=== PATIENT | male | born 1970 | race Caucasian/White ===

== ENCOUNTER 2017-03-14 10:50 | Emergency (ER) | payer MEDICAID ==
[2016-01-30 18:11] VITALS: BMI 25.1
[~2017-03-14 10:50] MED LIST: AMITRIPTYLINE150 MG PO; PROZAC20 MG PO; SEROQUEL100 MG PO; SEROQUEL200 MG PO
== END 2017-03-14 13:09 | disposition home or self-care (01) ==
LOC: D.ER 10:50
DX: S69.92XA Unspecified injury of left wrist, hand and finger(s), initial encounter (principal); W19.XXXA Unspecified fall, initial encounter; Y93.89 Activity, other specified; Y92.019 Unspecified place in single-family (private) house as the place of occurrence of the external cause; S62.306A Unspecified fracture of fifth metacarpal bone, right hand, initial encounter for closed fracture; F17.200 Nicotine dependence, unspecified, uncomplicated

== ENCOUNTER 2017-06-22 14:39 | Emergency (ER) | payer SELFPAY ==
[2016-01-30 18:11] VITALS: BMI 25.1
[2017-06-22 16:35] LABS: ALKALINE PHOSPHATASE 76 U/L (46-116); ALT (SGPT) 39 U/L (10-68); BILIRUBIN - TOTAL 0.27 mg/dL (0.2-1.3); CALC OSMOLALITY 278 mosm/kg (275-300); CALCIUM 9.1 mg/dL (8.5-10.1); CARBON DIOXIDE 31.8 mmol/L (21.0-32.0); CHLORIDE - SERUM 101 mmol/L (98-107); CREATININE - SERUM 0.8 mg/dL (0.6-1.3); GLUCOSE 104 mg/dL (74-106); POTASSIUM - SERUM 4.9 mmol/L (3.5-5.1); PROTEIN - SERUM 7.6 g/dL (6.4-8.2); SODIUM 139 mmol/L (136-145); UREA NITROGEN 16 mg/dL (7-18); eGFR NON AFRICAN AMERICAN > 90 mL/min (90-120)
== END 2017-06-22 17:05 | disposition home or self-care (01) ==
LOC: D.ER 14:39
PROVIDERS: Nurse Practitioner Acute Care
DX: M25.532 Pain in left wrist (principal); F17.200 Nicotine dependence, unspecified, uncomplicated

== ENCOUNTER 2017-12-15 11:08 | Emergency (ER) | payer BC ==
[2016-01-30 18:11] VITALS: BMI 25.1
== END 2017-12-15 12:17 | disposition home or self-care (01) ==
LOC: D.ER 11:08
DX: N45.1 Epididymitis (principal); F17.200 Nicotine dependence, unspecified, uncomplicated

== ENCOUNTER 2018-06-15 04:54 | Inpatient (IN) | payer MEDICAID ==
[~2018-06-15] VITALS: Ht 180.3 cm; Wt 86.4 kg
--- NOTE | ~2018-06-15 | EC ---
PATIENT:HALIMA SHARP DATE OF SERVICE: 06/15/18 SEX: M MEDICAL RECORD: [id number] DATE OF : [birth year] LOCATION:D.M2 D.213 AGE OF PATIENT: 47 ADMISSION DATE: 06/15/18 REFERRING PHYSICIAN: INTERPRETING PHYSICIAN: FABY ROTH MD ECHOCARDIOGRAM REPORT ECHO CHARGES 4 ECHO COMPLETE Date: 06/15 CLINICAL DIAGNOSIS: IV DRUG USE, ASSESS FOR VEG ECHOCARDIOGRAPHIC MEASUREMENTS (adult normal given) AC root (d.<3.7cm) 4.0 cm LV Septum d (<1.2 cm> 1.7 cm Valve Excursion 2.4 cm LV Septum (systole) 2.0 cm Left Atria (s.<4.0cm> 3.2 cm LVPW d(<1.2cm) 1.6 cm RV (d.<2.3cm) 4.5 cm LVPW (sytole) 1.8 cm LV diastole(<5.6CM) 6.3 cm MV E-F(>70mm/sec) cm LV systole 4.6 cm LVOT Diameter 2.4 cm MV exc.(>10mm) 2.4 cm Est.ejection fraction (50-75%) % DOPPLER: LVIT cm/sec A 62.0 cm/sec E 80.0 cm/sec LA cm/sec RVSP 16 mmHg LVOT 103 cm/sec AOP1/2T m/s Asc. Ao 131 cm/sec RVOT 79 cm/sec RA 98 cm/sec PA cm/sec AV Gradient Peak 6.86 mmHg AV Mean 3.40 mmHg AV Area 2.6 cm MV Gradient Peak 3.29 mmHg MV Mean 3.40 mmHg MV Area cm COMMENTS: Transport Analyst: Alonso ARMIJO Senior Linux Systems Administrator: 1 Dr. Roth TAPE# PACS Pericardial Effusion N DATE OF SERVICE: 06/15/2018 DATE OF SERVICE: 06/15/2018 FINDINGS: 1. Left ventricular chamber size is within normal limits. Left ventricular systolic function is normal. Overall ejection fraction is estimated at 55% to 60%. 2. Left atrium, right atrium, and right ventricle chamber sizes are within normal limits. ECHOCARDIOGRAM REPORT [id number] HALIMA SHARP 3. Valvular structures have normal structure and motion. No evidence of vegetative endocarditis. 4. Doppler interrogation reveals mild mitral regurgitation, trace tricuspid regurgitation, no other valvular insufficiency or stenosis and pulmonary systolic pressure is normal estimated at 16 mmHg. 5. No evidence of pericardial effusion or left ventricular thrombus. TRANSINT:[id number] Voice Confirmation ID: [id number] DOCUMENT ID: [id number] FABY ROTH MD at 1325 CC: [id number] DICTATION DATE: 06/15/18 1636 PATIENT CENTERED CARE SPECIALIST: 06/15/18 1824 DIS IN 06/19/18 [facility] [address] [place] [id number]
[2018-06-15 05:27] LABS: BASOPHILS 0.8 % (0-2); HEMATOCRIT 37.6 % (42.0-54.0); HEMOGLOBIN 12.5 g/dL (13.5-17.5); IMMATURE GRANULOCYTES 2.2 % (0-5); LYMPHOCYTES 20.6 % (15-50); MCH 29.7 pg (26.0-34.0); MCHC 33.2 g/dL (31.0-37.0); MCV 89.3 fL (80.0-100.0); MEAN PLATELET VOLUME 9.4 fL (7.4-10.4); MONOCYTES 10.4 % (2-11); PLATELET COUNT 676 10x3/uL (130-400); RBC 4.21 10x6/uL (4.20-6.10); RDW 13.2 % (11.5-14.5)
[2018-06-15 05:44] LABS: ALBUMIN 3.1 g/dL (3.4-5.0); ALKALINE PHOSPHATASE 77 U/L (46-116); ALT (SGPT) 40 U/L (10-68); BILIRUBIN - TOTAL 0.33 mg/dL (0.2-1.3); CALC OSMOLALITY 284 mosm/kg (275-300); CALCIUM 8.7 mg/dL (8.5-10.1); CARBON DIOXIDE 29.3 mmol/L (21.0-32.0); CHLORIDE - SERUM 102 mmol/L (98-107); CREATININE - SERUM 1.4 mg/dL (0.6-1.3); GLUCOSE 124 mg/dL (74-106); POTASSIUM - SERUM 4.2 mmol/L (3.5-5.1); PROTEIN - SERUM 8.2 g/dL (6.4-8.2); SODIUM 139 mmol/L (136-145); UREA NITROGEN 28 mg/dL (7-18); eGFR NON AFRICAN AMERICAN 58 mL/min (90-120)
[2018-06-15 05:50] LABS: INR 1.12 (0.85-1.17)
[2018-06-15 05:51] LABS: APTT 34.4 SECONDS (22.8-39.4)
[2018-06-15 05:52] LABS: D-DIMER-QUANTITATIVE 1.41 ug/mLFEU (0.20-0.54)
[2018-06-15 05:56] LABS: CKMB 1.5 U/L (0.0-3.6); CREATINE KINASE 519 UL (21-232); PRO BNP 81 pg/mL (0-125); TROPONIN-I < 0.017 ng/mL (0.000-0.060)
[2018-06-15 06:18] VITALS: BP 117/87
[2018-06-15 07:00] LABS: UDS - AMPHET POSITIVE QUAL (NEGATIVE); UDS - BARB NEGATIVE QUAL (NEGATIVE); UDS - BENZO NEGATIVE QUAL (NEGATIVE); UDS - COCAINE NEGATIVE QUAL (NEGATIVE); UDS - OPIATE POSITIVE QUAL (NEGATIVE); UDS - PCP NEGATIVE QUAL (NEGATIVE); UDS - THC NEGATIVE QUAL (NEGATIVE)
[2018-06-15 07:45] VITALS: BP 116/78
[2018-06-15 07:54] LABS: APPEARANCE TURBID (CLEAR); COLOR YELLOW (YELLOW); SPECIFIC GRAVITY 1.025 (1.005-1.020)
[2018-06-15 07:55] LABS: BILIRUBIN NEGATIVE (NEGATIVE); GLUCOSE NEGATIVE (NEGATIVE); KETONE NEGATIVE (NEGATIVE); NITRITE NEGATIVE (NEGATIVE); PROTEIN NEGATIVE (NEGATIVE); UROBILINOGEN NORMAL (NORMAL)
[2018-06-15 13:49] LABS: % SATURATION 31 % (15-55); IRON 70 ug/dl (35-150); TOTAL IRON BIND CAPACITY 224 ug/dl (260-445); UNSAT IRON BIND CAPACITY 154 ug/dl (150-375)
[2018-06-15 16:54] VITALS: BP 100/71
[2018-06-15 20:30] VITALS: BP 118/78
[2018-06-16] VITALS (7 sets, daily range): BP systolic 91–158; BP diastolic 54–94; BMI 26.5
[2018-06-16 05:28] LABS: BASOPHILS 0.5 % (0-2); EOSINOPHILS 6.8 % (0-7); HEMATOCRIT 35.1 % (42.0-54.0); HEMOGLOBIN 11.3 g/dL (13.5-17.5); IMMATURE GRANULOCYTES 0.9 % (0-5); LYMPHOCYTES 18.1 % (15-50); MCH 29.4 pg (26.0-34.0); MCHC 32.2 g/dL (31.0-37.0); MCV 91.2 fL (80.0-100.0); MEAN PLATELET VOLUME 9.6 fL (7.4-10.4); NEUTROPHILS 65.7 % (40-80); PLATELET COUNT 621 10x3/uL (130-400); RBC 3.85 10x6/uL (4.20-6.10); RDW 13.4 % (11.5-14.5); WBC 7.6 10x3/uL (4.8-10.8)
[2018-06-16 05:38] LABS: CARBON DIOXIDE 26.5 mmol/L (21.0-32.0); CHLORIDE - SERUM 104 mmol/L (98-107); GLUCOSE 103 mg/dL (74-106); SODIUM 129 mmol/L (136-145)
[2018-06-16 05:48] LABS: CALC OSMOLALITY 259 mosm/kg (275-300); CREATININE - SERUM 0.8 mg/dL (0.6-1.3); UREA NITROGEN 15 mg/dL (7-18); eGFR NON AFRICAN AMERICAN > 90 mL/min (90-120)
[2018-06-16 08:23] LABS: FOLATE (FOLIC ACID) - SERUM 14.4 ng/mL (>3.0)
[2018-06-16 10:14] LABS: HEPATITIS C ANTIBODY >11.0 (0.0-0.9)
[2018-06-17 04:30] VITALS: BP 117/65
[2018-06-17 06:15] LABS: BASOPHILS 0.7 % (0-2); EOSINOPHILS 8.3 % (0-7); HEMATOCRIT 37.3 % (42.0-54.0); HEMOGLOBIN 11.9 g/dL (13.5-17.5); LYMPHOCYTES 22.1 % (15-50); MCHC 31.9 g/dL (31.0-37.0); MCV 90.8 fL (80.0-100.0); MEAN PLATELET VOLUME 9.6 fL (7.4-10.4); MONOCYTES 6.5 % (2-11); NEUTROPHILS 61.4 % (40-80); PLATELET COUNT 606 10x3/uL (130-400); RBC 4.11 10x6/uL (4.20-6.10); RDW 13.3 % (11.5-14.5); WBC 6.9 10x3/uL (4.8-10.8)
[2018-06-17 06:34] LABS: CALC OSMOLALITY 279 mosm/kg (275-300); CALCIUM 8.6 mg/dL (8.5-10.1); CARBON DIOXIDE 28.9 mmol/L (21.0-32.0); CHLORIDE - SERUM 106 mmol/L (98-107); CREATININE - SERUM 0.7 mg/dL (0.6-1.3); GLUCOSE 109 mg/dL (74-106); POTASSIUM - SERUM 4.1 mmol/L (3.5-5.1); PRE-ALBUMIN 18.4 mg/dL (18.0-35.7); SODIUM 141 mmol/L (136-145); eGFR NON AFRICAN AMERICAN > 90 mL/min (90-120)
[2018-06-17 06:38] LABS: UREA NITROGEN 8 mg/dL (7-18)
[2018-06-17 08:53] VITALS: BP 116/79
[2018-06-17 12:19] VITALS: BP 116/77
[2018-06-17 16:53] VITALS: BP 118/82
[2018-06-17 20:48] VITALS: BP 103/62
[2018-06-18 01:05] VITALS: BP 110/62
[2018-06-18 05:15] VITALS: BP 123/79
[2018-06-18 05:30] LABS: BASOPHILS 0.7 % (0-2); EOSINOPHILS 8.1 % (0-7); HEMATOCRIT 36.3 % (42.0-54.0); HEMOGLOBIN 11.7 g/dL (13.5-17.5); IMMATURE GRANULOCYTES 0.7 % (0-5); LYMPHOCYTES 24.1 % (15-50); MCH 29.5 pg (26.0-34.0); MCHC 32.2 g/dL (31.0-37.0); MCV 91.4 fL (80.0-100.0); MEAN PLATELET VOLUME 9.4 fL (7.4-10.4); MONOCYTES 5.4 % (2-11); PLATELET COUNT 628 10x3/uL (130-400); RBC 3.97 10x6/uL (4.20-6.10); RDW 13.2 % (11.5-14.5); WBC 8.4 10x3/uL (4.8-10.8)
[2018-06-18 05:43] LABS: CALC OSMOLALITY 277 mosm/kg (275-300); CALCIUM 8.6 mg/dL (8.5-10.1); CARBON DIOXIDE 28.4 mmol/L (21.0-32.0); CHLORIDE - SERUM 106 mmol/L (98-107); CREATININE - SERUM 0.8 mg/dL (0.6-1.3); GLUCOSE 115 mg/dL (74-106); POTASSIUM - SERUM 3.8 mmol/L (3.5-5.1); SODIUM 139 mmol/L (136-145); eGFR NON AFRICAN AMERICAN > 90 mL/min (90-120)
[2018-06-18 05:44] LABS: UREA NITROGEN 11 mg/dL (7-18)
[2018-06-18 08:42] VITALS: BP 125/91
[2018-06-18 12:27] VITALS: BP 97/63
[2018-06-18 14:15] VITALS: Ht 180.3 cm; Wt 86.4 kg
[2018-06-18 16:52] VITALS: BP 118/82
[2018-06-18 20:48] VITALS: BP 131/84
[2018-06-19 06:57] VITALS: BP 113/71
[2018-06-19 07:48] LABS: BASOPHILS 0.4 % (0-2); EOSINOPHILS 5.8 % (0-7); HEMATOCRIT 39.1 % (42.0-54.0); HEMOGLOBIN 12.6 g/dL (13.5-17.5); IMMATURE GRANULOCYTES 0.9 % (0-5); LYMPHOCYTES 19.3 % (15-50); MCH 29.5 pg (26.0-34.0); MCHC 32.2 g/dL (31.0-37.0); MCV 91.6 fL (80.0-100.0); MEAN PLATELET VOLUME 9.4 fL (7.4-10.4); MONOCYTES 5.6 % (2-11); PLATELET COUNT 628 10x3/uL (130-400); RBC 4.27 10x6/uL (4.20-6.10); RDW 13.5 % (11.5-14.5); WBC 8.9 10x3/uL (4.8-10.8)
[2018-06-19 08:08] LABS: CALC OSMOLALITY 276 mosm/kg (275-300); CALCIUM 8.6 mg/dL (8.5-10.1); CARBON DIOXIDE 30.7 mmol/L (21.0-32.0); CHLORIDE - SERUM 105 mmol/L (98-107); CREATININE - SERUM 0.9 mg/dL (0.6-1.3); GLUCOSE 91 mg/dL (74-106); POTASSIUM - SERUM 4.2 mmol/L (3.5-5.1); SODIUM 138 mmol/L (136-145); eGFR NON AFRICAN AMERICAN > 90 mL/min (90-120)
[2018-06-19 08:09] LABS: UREA NITROGEN 15 mg/dL (7-18)
[2018-06-19 09:18] VITALS: BP 101/65
[2018-06-19 12:39] VITALS: BP 108/65
[2018-06-19] MEDS ORDERED: ACETAMINOPHEN325 MG PO (15:49)
[2018-06-19] MEDS ORDERED: VIBRAMYCIN 100100 MG PO (15:49)
[2018-06-19 16:23] LABS: AFB SPECIMEN PROCESSING Concentration (())
[2018-08-10 11:21] LABS: ACID FAST CULTURE Negative (()); ACID FAST SMEAR Negative (())
== END 2018-06-19 16:31 | disposition home or self-care (01) | DRG 190 ==
LOC: D.ER 04:54 → D.EDHOLD 07:43 → D.M2 07:43
PROVIDERS: Family Medicine; Internal Medicine Nephrology; Internal Medicine Pulmonary Disease
DX: J44.0 Chronic obstructive pulmonary disease with (acute) lower respiratory infection (principal); J18.9 Pneumonia, unspecified organism; E87.1 Hypo-osmolality and hyponatremia; J44.1 Chronic obstructive pulmonary disease with (acute) exacerbation; D64.9 Anemia, unspecified; F15.10 Other stimulant abuse, uncomplicated; F31.9 Bipolar disorder, unspecified; F20.9 Schizophrenia, unspecified; K21.9 Gastro-esophageal reflux disease without esophagitis; I10 Essential (primary) hypertension; B19.20 Unspecified viral hepatitis C without hepatic coma; I34.0 Nonrheumatic mitral (valve) insufficiency; Z59.0 Homelessness; R76.11 Nonspecific reaction to tuberculin skin test without active tuberculosis

== ENCOUNTER → 2018-10-16 07:43 | Outpatient (CLI) | payer OTHER ==
[2018-06-18 14:15] VITALS: BMI 26.5
[~2018-10-16 07:43] MED LIST changes: +ACETAMINOPHEN325 MG PO; +VIBRAMYCIN 100100 MG PO
== END | disposition home or self-care (01) ==
LOC: D.CT 10-12 13:30
DX: R91.8 Other nonspecific abnormal finding of lung field (principal)